=== PATIENT | male | born 1950 | race Caucasian/White ===

== ENCOUNTER 2022-03-26 05:46 | Inpatient (IN) | payer MEDICAID, MEDICARE ==
[~2022-03-26] VITALS: Ht 167.6 cm; Wt 65.8 kg
[2022-03-26 06:27] VITALS: BP_SYST 105
[2022-03-26 07:32] LABS: BASOPHILS % (AUTO) 0.2 % (0.0-2.0); EOSINOPHILS # (AUTO) 0.1 K/uL (0.0-0.4); EOSINOPHILS % (AUTO) 1.1 % (0.0-4.0); HEMATOCRIT 24.6 % (36-54); HEMOGLOBIN 8.3 g/dL (14.0-18.0); LYMPHOCYTES # (AUTO) 0.4 K/uL (1.0-5.5); LYMPHOCYTES % (AUTO) 6.7 % (20.5-51.5); MEAN CORPUSCULAR HEMOGLOBIN 30 pg (27-31); MEAN CORPUSCULAR HGB CONC 34 % (32-36); MEAN CORPUSCULAR VOLUME 90 fL (79.0-98.0); MONOCYTES # (AUTO) 0.6 K/uL (0.0-1.0); MONOCYTES % (AUTO) 9.7 % (1.7-9.3); NEUTROPHILS # (AUTO) 4.8 K/uL (1.8-7.7); NEUTROPHILS % (AUTO) 82.3 % (40.0-70.0); PLATELET COUNT (AUTO) 107 K/uL (130-430); RED BLOOD CELL COUNT(AUTO) 2.73 MIL/uL (4.2-6.2); RED CELL DISTRIBUTION WIDTH 13.6 % (9.0-15.0); WHITE BLOOD COUNT (AUTO) 5.9 K/uL (4.8-10.8)
[2022-03-26 07:51] LABS: ANION GAP 6 (5-15); CALCIUM 9.3 mg/dL (8.4-11.0); CHLORIDE 105 mmol/L (98-107); CREATININE 1.03 mg/dL (0.55-1.30); GLUCOSE 171 mg/dL (70-99); SODIUM SERUM 133 mmol/L (136-145); UREA NITROGEN, BLOOD 29 mg/dL (8-21)
[2022-03-26 07:52] LABS: INR 0.9 (0.80-1.20); PROTHROMBIN TIME 9.9 SECS (9.5-12.5)
[2022-03-26 08:01] LABS: ALANINE AMINOTRANSFERASE 15 U/L (12-78); ALBUMIN 1.6 g/dL (3.4-4.8); ASPARTATE AMINOTRANSFERASE 37 U/L (10-37); TOTAL BILIRUBIN 0.1 mg/dL (0.0-1.0)
[2022-03-26 08:24] LABS: BILIRUBIN,URINE NEGATIVE (NEGATIVE); BLOOD, URINE NEGATIVE (NEGATIVE); CLARITY/URINE CLEAR (CLEAR); COLOR,URINE YELLOW (YELLOW); GLUCOSE,URINE TRACE (NEGATIVE); KETONES,URINE NEGATIVE (NEGATIVE); LEUKOCYTE ESTERASE ,URINE NEGATIVE (NEGATIVE); NITRITE, URINE NEGATIVE (NEGATIVE); PH,URINE 6.5 (5.0-8.0); PROTEIN URINE 1+ (NEGATIVE); UROBILINOGEN,URINE 0.2 (0.2-1.0)
[2022-03-26] MEDS ORDERED: ACET325T53 PO (10:27)
[2022-03-26] MEDS ORDERED: HYDR2TAB4 GT (10:27)
[2022-03-26] MEDS ORDERED: LEVO50CA4 (10:27)
[2022-03-26] MEDS ORDERED: AMLO5TAB4 PO (10:27)
[2022-03-26] MEDS ORDERED: LACT10SO6 GT (10:27)
[2022-03-26] MEDS ORDERED: PRAV20TA59 GT (10:27)
[2022-03-26] MEDS ORDERED: PRO40 GT (10:27)
[2022-03-26] MEDS ORDERED: ASPI-1155 PO (10:27)
[2022-03-26] MEDS ORDERED: ONDANSETRON HCL 4 MG/2 ML VIAL IVP PRN (16:45)
[2022-03-26] MEDS: MORPHINE 2 MG/ML INJ. SYRINGE IVP PRN ×2 (17:14→22:00)
[2022-03-26 21:55] VITALS: BP_SYST 112
[2022-03-27] VITALS (7 sets, daily range): BP systolic 106–129
[2022-03-27 07:52] LABS: BASOPHILS % (AUTO) 0.4 % (0.0-2.0); EOSINOPHILS % (AUTO) 0.6 % (0.0-4.0); HEMATOCRIT 29.6 % (36-54); HEMOGLOBIN 10.1 g/dL (14.0-18.0); LYMPHOCYTES # (AUTO) 0.5 K/uL (1.0-5.5); LYMPHOCYTES % (AUTO) 5.3 % (20.5-51.5); MEAN CORPUSCULAR HEMOGLOBIN 31 pg (27-31); MEAN CORPUSCULAR HGB CONC 34 % (32-36); MEAN CORPUSCULAR VOLUME 89 fL (79.0-98.0); MONOCYTES # (AUTO) 0.6 K/uL (0.0-1.0); MONOCYTES % (AUTO) 7.2 % (1.7-9.3); NEUTROPHILS # (AUTO) 7.4 K/uL (1.8-7.7); NEUTROPHILS % (AUTO) 86.5 % (40.0-70.0); PLATELET COUNT (AUTO) 146 K/uL (130-430); RED BLOOD CELL COUNT(AUTO) 3.33 MIL/uL (4.2-6.2); RED CELL DISTRIBUTION WIDTH 13.7 % (9.0-15.0); WHITE BLOOD COUNT (AUTO) 8.6 K/uL (4.8-10.8)
[2022-03-27 08:13] LABS: ALANINE AMINOTRANSFERASE 23 U/L (12-78); ANION GAP 8 (5-15); ASPARTATE AMINOTRANSFERASE 31 U/L (10-37); CALCIUM 11.2 mg/dL (8.4-11.0); CHLORIDE 105 mmol/L (98-107); CREATININE 0.99 mg/dL (0.55-1.30); GLUCOSE 103 mg/dL (70-99); POTASSIUM 4.4 mmol/L (3.5-5.1); SODIUM SERUM 136 mmol/L (136-145); TOTAL BILIRUBIN 0.7 mg/dL (0.0-1.0); UREA NITROGEN, BLOOD 27 mg/dL (8-21)
[2022-03-27] MEDS ORDERED: GASTROGRAFIN 120 ML ONE (08:33)
[2022-03-27] MEDS: D5/0.45 NS 1,000 ML IV SCH ×2 (10:52→23:20)
[2022-03-27] MEDS ORDERED: PANTOPRAZOLE SODIUM 40 MG/VIAL (PROTONIX) IVP ONE (21:15)
[2022-03-28 00:40] VITALS: BP_SYST 122
[2022-03-28 04:11] VITALS: BP_SYST 122
[2022-03-28 07:14] LABS: BASOPHILS % (AUTO) 0.2 % (0.0-2.0); EOSINOPHILS % (AUTO) 0.5 % (0.0-4.0); HEMATOCRIT 26.6 % (36-54); HEMOGLOBIN 9.1 g/dL (14.0-18.0); LYMPHOCYTES # (AUTO) 0.5 K/uL (1.0-5.5); LYMPHOCYTES % (AUTO) 6.8 % (20.5-51.5); MEAN CORPUSCULAR HEMOGLOBIN 31 pg (27-31); MEAN CORPUSCULAR HGB CONC 34 % (32-36); MEAN CORPUSCULAR VOLUME 89 fL (79.0-98.0); MONOCYTES # (AUTO) 0.5 K/uL (0.0-1.0); MONOCYTES % (AUTO) 6.5 % (1.7-9.3); NEUTROPHILS # (AUTO) 6.8 K/uL (1.8-7.7); PLATELET COUNT (AUTO) 158 K/uL (130-430); RED BLOOD CELL COUNT(AUTO) 2.97 MIL/uL (4.2-6.2); RED CELL DISTRIBUTION WIDTH 13.4 % (9.0-15.0); WHITE BLOOD COUNT (AUTO) 7.9 K/uL (4.8-10.8)
[2022-03-28 07:44] LABS: TOTAL IRON BIND. CAPACITY 205 ug/dL (250-450)
[2022-03-28 08:00] VITALS: BP_SYST 118
[2022-03-28] MEDS: MORPHINE 2 MG/ML INJ. SYRINGE IVP PRN (09:42)
[2022-03-28] MEDS: PANTOPRAZOLE SODIUM 40 MG/VIAL (PROTONIX) IVP SCH (09:43)
[2022-03-28 10:40] LABS: ALANINE AMINOTRANSFERASE 22 U/L (12-78); ANION GAP 10 (5-15); ASPARTATE AMINOTRANSFERASE 30 U/L (10-37); BILIRUBIN,DIRECT 0.3 mg/dL (0.0-0.3); CALCIUM 10.9 mg/dL (8.4-11.0); CHLORIDE 110 mmol/L (98-107); CREATININE 1.22 mg/dL (0.55-1.30); GLUCOSE 125 mg/dL (70-99); POTASSIUM 3.9 mmol/L (3.5-5.1); SODIUM SERUM 143 mmol/L (136-145); TOTAL BILIRUBIN 0.3 mg/dL (0.0-1.0); UREA NITROGEN, BLOOD 38 mg/dL (8-21)
[2022-03-28 11:34] VITALS: BP_SYST 126
[2022-03-28 15:46] VITALS: BP_SYST 125
[2022-03-28 20:20] VITALS: BP_SYST 117
[2022-03-29] MEDS: MORPHINE 2 MG/ML INJ. SYRINGE IVP PRN (01:28)
[2022-03-29 01:34] VITALS: BP_SYST 120
[2022-03-29 07:05] LABS: BASOPHILS % (AUTO) 0.4 % (0.0-2.0); EOSINOPHILS % (AUTO) 0.7 % (0.0-4.0); HEMOGLOBIN 9.2 g/dL (14.0-18.0); LYMPHOCYTES # (AUTO) 0.5 K/uL (1.0-5.5); LYMPHOCYTES % (AUTO) 7.4 % (20.5-51.5); MEAN CORPUSCULAR HEMOGLOBIN 30 pg (27-31); MEAN CORPUSCULAR HGB CONC 34 % (32-36); MEAN CORPUSCULAR VOLUME 90 fL (79.0-98.0); MONOCYTES # (AUTO) 0.5 K/uL (0.0-1.0); MONOCYTES % (AUTO) 7.5 % (1.7-9.3); NEUTROPHILS # (AUTO) 5.2 K/uL (1.8-7.7); PLATELET COUNT (AUTO) 137 K/uL (130-430); RED BLOOD CELL COUNT(AUTO) 3.01 MIL/uL (4.2-6.2); RED CELL DISTRIBUTION WIDTH 13.4 % (9.0-15.0); WHITE BLOOD COUNT (AUTO) 6.2 K/uL (4.8-10.8)
[2022-03-29 07:07] LABS: FOLATE (FOLIC ACID) 13.2 ng/mL (>3.0)
[2022-03-29 07:32] LABS: ANION GAP 8 (5-15); CALCIUM 10.9 mg/dL (8.4-11.0); CHLORIDE 112 mmol/L (98-107); CREATININE 1.21 mg/dL (0.55-1.30); GLUCOSE 91 mg/dL (70-99); POTASSIUM 3.8 mmol/L (3.5-5.1); SODIUM SERUM 144 mmol/L (136-145); UREA NITROGEN, BLOOD 38 mg/dL (8-21)
[2022-03-29] MEDS: PANTOPRAZOLE SODIUM 40 MG/VIAL (PROTONIX) IVP SCH ×2 (09:00→09:32)
[2022-03-29 10:24] VITALS: BP_SYST 126
[2022-03-29 12:39] VITALS: BP_SYST 108
[2022-03-29 16:53] VITALS: BP_SYST 133
[2022-03-29 20:00] VITALS: BP_SYST 96
[2022-03-30 02:05] VITALS: BP_SYST 127
[2022-03-30 06:57] LABS: BASOPHILS % (AUTO) 0.3 % (0.0-2.0); EOSINOPHILS # (AUTO) 0.1 K/uL (0.0-0.4); EOSINOPHILS % (AUTO) 0.8 % (0.0-4.0); HEMATOCRIT 26.8 % (36-54); HEMOGLOBIN 8.9 g/dL (14.0-18.0); LYMPHOCYTES # (AUTO) 0.4 K/uL (1.0-5.5); LYMPHOCYTES % (AUTO) 6.3 % (20.5-51.5); MEAN CORPUSCULAR HEMOGLOBIN 30 pg (27-31); MEAN CORPUSCULAR HGB CONC 33 % (32-36); MEAN CORPUSCULAR VOLUME 90 fL (79.0-98.0); MONOCYTES # (AUTO) 0.4 K/uL (0.0-1.0); MONOCYTES % (AUTO) 6.9 % (1.7-9.3); NEUTROPHILS # (AUTO) 5.5 K/uL (1.8-7.7); NEUTROPHILS % (AUTO) 85.7 % (40.0-70.0); PLATELET COUNT (AUTO) 140 K/uL (130-430); RED BLOOD CELL COUNT(AUTO) 2.97 MIL/uL (4.2-6.2); RED CELL DISTRIBUTION WIDTH 13.6 % (9.0-15.0); WHITE BLOOD COUNT (AUTO) 6.4 K/uL (4.8-10.8)
[2022-03-30 08:11] VITALS: BP_SYST 101
[2022-03-30 08:13] LABS: ANION GAP 7 (5-15); CALCIUM 11.8 mg/dL (8.4-11.0); CHLORIDE 117 mmol/L (98-107); CREATININE 1.33 mg/dL (0.55-1.30); GLUCOSE 113 mg/dL (70-99); POTASSIUM 3.5 mmol/L (3.5-5.1); SODIUM SERUM 150 mmol/L (136-145); UREA NITROGEN, BLOOD 44 mg/dL (8-21)
[2022-03-30] MEDS: PANTOPRAZOLE SODIUM 40 MG/VIAL (PROTONIX) IVP SCH (09:00)
[2022-03-30 12:40] VITALS: BP_SYST 104
[2022-03-30 16:00] VITALS: BP_SYST 103
[2022-03-30 20:00] VITALS: BP_SYST 99
[2022-03-31 01:25] VITALS: BP_SYST 111
[2022-03-31 07:50] VITALS: BP_SYST 93
[2022-03-31 08:00] VITALS: BP_SYST 93
[2022-03-31 12:29] VITALS: BP_SYST 101
[2022-03-31 16:41] VITALS: BP_SYST 105
[2022-03-31] MEDS: MORPHINE 2 MG/ML INJ. SYRINGE IVP PRN (16:48)
[2022-03-31] MEDS ORDERED: NALOXONE HCL 0.4 MG/ML AMP (NARCAN) IVP PRN (18:15)
[2022-03-31] MEDS ORDERED: NS 250 ML IV ONE (21:30)
[2022-03-31] MEDS ORDERED: NACL 0.9% 1,000 ML IV ONE (21:30)
[2022-03-31] MEDS: ALBUMIN HUMAN 25% 100 ML IV PRN (23:28)
[2022-04-01] VITALS (22 sets, daily range): BP systolic 74–136
[2022-04-01] MEDS: IPRATROPIUM/ALBUTEROL SULFATE 3 ML AMPUL.NEB (DUONEB) INH PRN (00:26)
[2022-04-01] MEDS ORDERED: NOREPINEPHRINE 4 MG/4 ML VIAL IV ONE (01:09)
[2022-04-01] MEDS ORDERED: ALBUMIN HUMAN 25% 100 ML IV ONE (03:54)
[2022-04-01] MEDS: ALBUMIN HUMAN 25% 100 ML IV PRN (03:54)
[2022-04-01] MEDS ORDERED: NOREPINEPHRINE BITARTRATE 4 MG in NS 246 ML IV PRN (05:45)
[2022-04-01 07:39] LABS: ALANINE AMINOTRANSFERASE 34 U/L (12-78); ALBUMIN 2.3 g/dL (3.4-4.8); ANION GAP 15 (5-15); ASPARTATE AMINOTRANSFERASE 71 U/L (10-37); CREATININE 2.38 mg/dL (0.55-1.30); GLUCOSE 127 mg/dL (70-99); PHOSPHORUS 7.2 mg/dL (2.7-4.5); POTASSIUM 4.3 mmol/L (3.5-5.1); SODIUM SERUM 154 mmol/L (136-145); TOTAL BILIRUBIN 0.8 mg/dL (0.0-1.0); UREA NITROGEN, BLOOD 70 mg/dL (8-21)
[2022-04-01] MEDS ORDERED: SODIUM BICARBONATE 8.4% JECT 50 MEQ/50 ML SYRINGE IVP ONE (08:00)
[2022-04-01] MEDS ORDERED: ALBUMIN HUMAN 25% 100 ML IV PRN (08:00)
[2022-04-01] MEDS ORDERED: SODIUM BICARBONATE 8.4% JECT 50 MEQ/50 ML SYRINGE ONE (08:09)
[2022-04-01 08:22] LABS: BASOPHILS % (AUTO) 0.2 % (0.0-2.0); EOSINOPHILS % (AUTO) 0.4 % (0.0-4.0); HEMATOCRIT 27.2 % (36-54); HEMOGLOBIN 8.7 g/dL (14.0-18.0); LYMPHOCYTES # (AUTO) 0.6 K/uL (1.0-5.5); LYMPHOCYTES % (AUTO) 15.5 % (20.5-51.5); MEAN CORPUSCULAR HEMOGLOBIN 30 pg (27-31); MEAN CORPUSCULAR HGB CONC 32 % (32-36); MEAN CORPUSCULAR VOLUME 93 fL (79.0-98.0); MONOCYTES # (AUTO) 0.2 K/uL (0.0-1.0); NEUTROPHILS # (AUTO) 3.2 K/uL (1.8-7.7); NEUTROPHILS % (AUTO) 79.9 % (40.0-70.0); PLATELET COUNT (AUTO) 122 K/uL (130-430); RED BLOOD CELL COUNT(AUTO) 2.92 MIL/uL (4.2-6.2); RED CELL DISTRIBUTION WIDTH 14.1 % (9.0-15.0)
[2022-04-01] MEDS ORDERED: PIPERACILLIN/TAZO 3.375/DEX-IS 50 ML IV SCH (08:45)
[2022-04-01 08:55] LABS: CALCIUM 13.7 mg/dL (8.4-11.0); CHLORIDE 121 mmol/L (98-107)
[2022-04-01 09:25] LABS: INR 1.2 (0.80-1.20); PROTHROMBIN TIME 12.1 SECS (9.5-12.5)
[2022-04-01] MEDS ORDERED: methylPREDNISolone SOD SUCC/PF 62.5 MG/ML VIAL IVP ONE (09:30)
[2022-04-01] MEDS: PANTOPRAZOLE SODIUM 40 MG/VIAL (PROTONIX) IVP SCH (09:52)
[2022-04-01] MEDS: 0.45% NACL 1,000 ML IV SCH ×2 (09:52→17:26)
[2022-04-01] MEDS: NOREPINEPHRINE BITARTRATE 16 MG in NS 234 ML IV PRN (12:27)
[2022-04-01] MEDS: methylPREDNISolone SOD SUCC/PF 62.5 MG/ML VIAL IVP SCH ×2 (14:17→22:03)
[2022-04-01] MEDS: PIPERACILLIN/TAZO 3.375/DEX-IS 50 ML IV SCH ×2 (14:18→22:51)
[2022-04-01] MEDS ORDERED: PAMIDRONATE DISODIUM 90 MG in NS 250 ML IV ONE (16:30)
[2022-04-02] VITALS (24 sets, daily range): BP systolic 92–157
[2022-04-02] MEDS: 0.45% NACL 1,000 ML IV SCH ×3 (01:45→22:34)
[2022-04-02] MEDS: PIPERACILLIN/TAZO 3.375/DEX-IS 50 ML IV SCH ×3 (05:11→21:55)
[2022-04-02] MEDS: methylPREDNISolone SOD SUCC/PF 62.5 MG/ML VIAL IVP SCH ×3 (05:15→21:55)
[2022-04-02 06:51] LABS: HEMOGLOBIN 8.9 g/dL (14.0-18.0); LYMPHOCYTES # (AUTO) 0.3 K/uL (1.0-5.5); LYMPHOCYTES % (AUTO) 4.5 % (20.5-51.5); MEAN CORPUSCULAR HEMOGLOBIN 30 pg (27-31); MEAN CORPUSCULAR HGB CONC 33 % (32-36); MEAN CORPUSCULAR VOLUME 90 fL (79.0-98.0); MONOCYTES # (AUTO) 0.1 K/uL (0.0-1.0); MONOCYTES % (AUTO) 1.8 % (1.7-9.3); NEUTROPHILS # (AUTO) 5.9 K/uL (1.8-7.7); NEUTROPHILS % (AUTO) 93.7 % (40.0-70.0); PLATELET COUNT (AUTO) 94 K/uL (130-430); RED CELL DISTRIBUTION WIDTH 14.2 % (9.0-15.0); WHITE BLOOD COUNT (AUTO) 6.3 K/uL (4.8-10.8)
[2022-04-02 06:54] LABS: ANION GAP 14 (5-15); CHLORIDE 116 mmol/L (98-107); CREATININE 2.47 mg/dL (0.55-1.30); GLUCOSE 133 mg/dL (70-99); SODIUM SERUM 152 mmol/L (136-145); UREA NITROGEN, BLOOD 81 mg/dL (8-21)
[2022-04-02] MEDS: PANTOPRAZOLE SODIUM 40 MG/VIAL (PROTONIX) IVP SCH (08:37)
[2022-04-02 09:05] LABS: CALCIUM 12.6 mg/dL (8.4-11.0)
[2022-04-03] VITALS (25 sets, daily range): BP systolic 92–129
[2022-04-03] MEDS ORDERED: ALBUMIN HUMAN 25% 100 ML IV ONE (01:40)
[2022-04-03] MEDS: methylPREDNISolone SOD SUCC/PF 62.5 MG/ML VIAL IVP SCH ×3 (05:57→21:25)
[2022-04-03] MEDS: PIPERACILLIN/TAZO 3.375/DEX-IS 50 ML IV SCH ×3 (05:57→21:24)
[2022-04-03 06:33] LABS: ALANINE AMINOTRANSFERASE 53 U/L (12-78); ALBUMIN 2.3 g/dL (3.4-4.8); ANION GAP 12 (5-15); ASPARTATE AMINOTRANSFERASE 65 U/L (10-37); CALCIUM 11.1 mg/dL (8.4-11.0); CHLORIDE 111 mmol/L (98-107); CREATININE 2.25 mg/dL (0.55-1.30); GLUCOSE 238 mg/dL (70-99); SODIUM SERUM 143 mmol/L (136-145); UREA NITROGEN, BLOOD 88 mg/dL (8-21)
[2022-04-03] MEDS: PANTOPRAZOLE SODIUM 40 MG/VIAL (PROTONIX) IVP SCH (08:42)
[2022-04-03] MEDS: HYDROmorphone 1 MG/ML INJ. CARTRIDGE IM PRN ×2 (11:27→17:16)
[2022-04-03] MEDS: 0.45% NACL 1,000 ML IV SCH ×2 (12:00→21:44)
[2022-04-04] VITALS (23 sets, daily range): BP systolic 98–161
[2022-04-04 06:00] LABS: BASOPHILS % (AUTO) 0.1 % (0.0-2.0); HEMATOCRIT 25.9 % (36-54); HEMOGLOBIN 8.6 g/dL (14.0-18.0); LYMPHOCYTES # (AUTO) 0.2 K/uL (1.0-5.5); LYMPHOCYTES % (AUTO) 2.5 % (20.5-51.5); MEAN CORPUSCULAR HEMOGLOBIN 30 pg (27-31); MEAN CORPUSCULAR HGB CONC 33 % (32-36); MEAN CORPUSCULAR VOLUME 90 fL (79.0-98.0); MONOCYTES % (AUTO) 0.5 % (1.7-9.3); NEUTROPHILS # (AUTO) 7.6 K/uL (1.8-7.7); NEUTROPHILS % (AUTO) 96.9 % (40.0-70.0); PLATELET COUNT (AUTO) 55 K/uL (130-430); RED BLOOD CELL COUNT(AUTO) 2.88 MIL/uL (4.2-6.2); RED CELL DISTRIBUTION WIDTH 14.3 % (9.0-15.0); WHITE BLOOD COUNT (AUTO) 7.9 K/uL (4.8-10.8)
[2022-04-04] MEDS: PIPERACILLIN/TAZO 3.375/DEX-IS 50 ML IV SCH ×3 (06:18→21:52)
[2022-04-04 06:21] LABS: ANION GAP 13 (5-15); CHLORIDE 114 mmol/L (98-107); CREATININE 1.97 mg/dL (0.55-1.30); POTASSIUM 3.7 mmol/L (3.5-5.1); SODIUM SERUM 148 mmol/L (136-145); UREA NITROGEN, BLOOD 82 mg/dL (8-21)
[2022-04-04] MEDS: methylPREDNISolone SOD SUCC/PF 62.5 MG/ML VIAL IVP SCH (06:59)
[2022-04-04 07:46] LABS: GLUCOSE 408 mg/dL (70-99)
[2022-04-04] MEDS ORDERED: D5W 1,000 ML IV PRN (08:15)
[2022-04-04] MEDS ORDERED: GLUCOSE (DEXTROSE) ORAL GEL -Adults PO PRN (08:15)
[2022-04-04] MEDS ORDERED: DEXTROSE 50% JECT 50 ML DISP.SYRIN IVP PRN (08:15)
[2022-04-04] MEDS: PANTOPRAZOLE SODIUM 40 MG/VIAL (PROTONIX) IVP SCH (09:23)
[2022-04-04] MEDS: 0.45% NACL 1,000 ML IV SCH ×2 (09:23→18:32)
[2022-04-04] MEDS: INSULIN REGULAR, HUMAN 100 UNITS/ML, 10 ML VIAL (humuLIN R) SUBCUT PRN ×3 (09:24→18:33)
[2022-04-04] MEDS: METHYLPREDNISOLONE SOD SUCC 40 MG/ML VIAL IVP SCH (21:53)
[2022-04-04] MEDS: NOREPINEPHRINE BITARTRATE 16 MG in NS 234 ML IV PRN (22:07)
[2022-04-05] VITALS (25 sets, daily range): BP systolic 88–124
[2022-04-05] MEDS: INSULIN REGULAR, HUMAN 100 UNITS/ML, 10 ML VIAL (humuLIN R) SUBCUT PRN ×4 (01:10→17:51)
[2022-04-05] MEDS: 0.45% NACL 1,000 ML IV SCH ×3 (05:11→23:30)
[2022-04-05] MEDS: PIPERACILLIN/TAZO 3.375/DEX-IS 50 ML IV SCH ×3 (05:14→21:41)
[2022-04-05 05:58] LABS: HEMATOCRIT 26.5 % (36-54); HEMOGLOBIN 8.7 g/dL (14.0-18.0); MEAN CORPUSCULAR HEMOGLOBIN 30 pg (27-31); MEAN CORPUSCULAR HGB CONC 33 % (32-36); MEAN CORPUSCULAR VOLUME 90 fL (79.0-98.0); PLATELET COUNT (AUTO) 58 K/uL (130-430); RED BLOOD CELL COUNT(AUTO) 2.94 MIL/uL (4.2-6.2); RED CELL DISTRIBUTION WIDTH 14.4 % (9.0-15.0)
[2022-04-05 06:11] LABS: ANION GAP 10 (5-15); CALCIUM 9.2 mg/dL (8.4-11.0); CHLORIDE 116 mmol/L (98-107); GLUCOSE 285 mg/dL (70-99); SODIUM SERUM 149 mmol/L (136-145); UREA NITROGEN, BLOOD 79 mg/dL (8-21)
[2022-04-05] MEDS: METHYLPREDNISOLONE SOD SUCC 40 MG/ML VIAL IVP SCH ×2 (09:54→21:38)
[2022-04-05 15:49] LABS: CORRECTED WHITE BLOOD COUNT 6.6 K/uL (4.5-11.0)
[2022-04-05 15:50] LABS: BAND % (MANUAL) 12 % (0-6); BASOPHILS % (MANUAL) 0 % (0-2); EOSINOPHILS % (MANUAL) 0 % (0-7); LYMPHOCYTES % (MANUAL) 9 % (20-46); MONOCYTES % (MANUAL) 2 % (0-11)
[2022-04-05] MEDS: MORPHINE 2 MG/ML INJ. SYRINGE IVP PRN (21:44)
[2022-04-06] VITALS (24 sets, daily range): BP systolic 92–120
[2022-04-06] MEDS: INSULIN REGULAR, HUMAN 100 UNITS/ML, 10 ML VIAL (humuLIN R) SUBCUT PRN ×4 (00:36→18:17)
[2022-04-06] MEDS: PIPERACILLIN/TAZO 3.375/DEX-IS 50 ML IV SCH (06:06)
[2022-04-06 06:08] LABS: BASOPHILS % (AUTO) 0.1 % (0.0-2.0); HEMATOCRIT 24.7 % (36-54); LYMPHOCYTES # (AUTO) 0.2 K/uL (1.0-5.5); LYMPHOCYTES % (AUTO) 2.9 % (20.5-51.5); MEAN CORPUSCULAR HEMOGLOBIN 30 pg (27-31); MEAN CORPUSCULAR HGB CONC 32 % (32-36); MEAN CORPUSCULAR VOLUME 91 fL (79.0-98.0); MONOCYTES # (AUTO) 0.1 K/uL (0.0-1.0); MONOCYTES % (AUTO) 1.2 % (1.7-9.3); NEUTROPHILS # (AUTO) 6.2 K/uL (1.8-7.7); NEUTROPHILS % (AUTO) 95.8 % (40.0-70.0); RED BLOOD CELL COUNT(AUTO) 2.72 MIL/uL (4.2-6.2); RED CELL DISTRIBUTION WIDTH 14.9 % (9.0-15.0); WHITE BLOOD COUNT (AUTO) 6.5 K/uL (4.8-10.8)
[2022-04-06 06:27] LABS: ANION GAP 5 (5-15); CALCIUM 8.1 mg/dL (8.4-11.0); CHLORIDE 116 mmol/L (98-107); CREATININE 1.94 mg/dL (0.55-1.30); GLUCOSE 311 mg/dL (70-99); POTASSIUM 4.6 mmol/L (3.5-5.1); SODIUM SERUM 145 mmol/L (136-145); UREA NITROGEN, BLOOD 80 mg/dL (8-21)
[2022-04-06 06:54] LABS: PLATELET COUNT (AUTO) 45 K/uL (130-430)
[2022-04-06] MEDS: METHYLPREDNISOLONE SOD SUCC 40 MG/ML VIAL IVP SCH ×2 (08:49→21:50)
[2022-04-06] MEDS: 0.45% NACL 1,000 ML IV SCH ×2 (09:30→21:43)
[2022-04-06] MEDS: CEFEPIME 1 GM in D5W 50 ML IV SCH (21:45)
[2022-04-06] MEDS: DOCUSATE SODIUM 100 MG/10 ML UDC PO SCH (21:51)
[2022-04-06] MEDS ORDERED: NOREPINEPHRINE 4 MG/4 ML VIAL IV ONE (22:15)
[2022-04-06] MEDS: NOREPINEPHRINE BITARTRATE 16 MG in NS 234 ML IV PRN (22:32)
[2022-04-07] VITALS (24 sets, daily range): BP systolic 92–134
[2022-04-07] MEDS: INSULIN REGULAR, HUMAN 100 UNITS/ML, 10 ML VIAL (humuLIN R) SUBCUT PRN ×4 (01:52→18:48)
[2022-04-07 06:21] LABS: BASOPHILS % (AUTO) 0.2 % (0.0-2.0); EOSINOPHILS % (AUTO) 0.2 % (0.0-4.0); HEMATOCRIT 25.6 % (36-54); HEMOGLOBIN 8.2 g/dL (14.0-18.0); LYMPHOCYTES # (AUTO) 0.2 K/uL (1.0-5.5); LYMPHOCYTES % (AUTO) 1.7 % (20.5-51.5); MEAN CORPUSCULAR HEMOGLOBIN 30 pg (27-31); MEAN CORPUSCULAR HGB CONC 32 % (32-36); MEAN CORPUSCULAR VOLUME 94 fL (79.0-98.0); MONOCYTES % (AUTO) 0.4 % (1.7-9.3); NEUTROPHILS # (AUTO) 9.4 K/uL (1.8-7.7); NEUTROPHILS % (AUTO) 97.5 % (40.0-70.0); PLATELET COUNT (AUTO) 57 K/uL (130-430); RED BLOOD CELL COUNT(AUTO) 2.71 MIL/uL (4.2-6.2); WHITE BLOOD COUNT (AUTO) 9.6 K/uL (4.8-10.8)
[2022-04-07 06:36] LABS: ANION GAP 7 (5-15); CALCIUM 8.1 mg/dL (8.4-11.0); CHLORIDE 119 mmol/L (98-107); GLUCOSE 266 mg/dL (70-99); SODIUM SERUM 150 mmol/L (136-145); UREA NITROGEN, BLOOD 86 mg/dL (8-21)
[2022-04-07 07:46] LABS: POTASSIUM 5.8 mmol/L (3.5-5.1)
[2022-04-07] MEDS ORDERED: SODIUM POLYSTYRENE SULFONATE 15 GM/60 ML UDBTL GT ONE (08:30)
[2022-04-07] MEDS: METHYLPREDNISOLONE SOD SUCC 40 MG/ML VIAL IVP SCH ×2 (08:38→20:16)
[2022-04-07] MEDS: DOCUSATE SODIUM 100 MG/10 ML UDC PO SCH ×2 (08:38→20:15)
[2022-04-07] MEDS: CEFEPIME 1 GM in D5W 50 ML IV SCH ×2 (08:39→20:15)
[2022-04-07] MEDS: 0.45% NACL 1,000 ML IV SCH (10:43)
[2022-04-07] MEDS: MORPHINE 2 MG/ML INJ. SYRINGE IVP PRN (11:01)
[2022-04-07] MEDS: IPRATROPIUM/ALBUTEROL SULFATE 3 ML AMPUL.NEB (DUONEB) INH PRN (19:26)
[2022-04-08] VITALS (23 sets, daily range): BP systolic 104–122
[2022-04-08] MEDS: INSULIN REGULAR, HUMAN 100 UNITS/ML, 10 ML VIAL (humuLIN R) SUBCUT PRN ×2 (00:35→06:04)
[2022-04-08] MEDS: IPRATROPIUM/ALBUTEROL SULFATE 3 ML AMPUL.NEB (DUONEB) INH PRN (03:01)
[2022-04-08] MEDS: 0.45% NACL 1,000 ML IV SCH (06:05)
[2022-04-08] MEDS: NOREPINEPHRINE BITARTRATE 16 MG in NS 234 ML IV PRN (06:40)
[2022-04-08 06:45] LABS: ANION GAP 7 (5-15); CALCIUM 8.2 mg/dL (8.4-11.0); CHLORIDE 116 mmol/L (98-107); CREATININE 2.38 mg/dL (0.55-1.30); GLUCOSE 326 mg/dL (70-99); HEMATOCRIT 26.4 % (36-54); HEMOGLOBIN 8.3 g/dL (14.0-18.0); MEAN CORPUSCULAR HEMOGLOBIN 30 pg (27-31); MEAN CORPUSCULAR HGB CONC 32 % (32-36); MEAN CORPUSCULAR VOLUME 95 fL (79.0-98.0); PLATELET COUNT (AUTO) 59 K/uL (130-430); RED BLOOD CELL COUNT(AUTO) 2.79 MIL/uL (4.2-6.2); RED CELL DISTRIBUTION WIDTH 14.9 % (9.0-15.0); SODIUM SERUM 146 mmol/L (136-145); UREA NITROGEN, BLOOD 97 mg/dL (8-21); WHITE BLOOD COUNT (AUTO) 13.8 K/uL (4.8-10.8)
[2022-04-08] MEDS: METHYLPREDNISOLONE SOD SUCC 40 MG/ML VIAL IVP SCH ×2 (09:04→21:19)
[2022-04-08] MEDS: DOCUSATE SODIUM 100 MG/10 ML UDC PO SCH ×2 (09:05→21:20)
[2022-04-08] MEDS: CEFEPIME 1 GM in D5W 50 ML IV SCH ×2 (09:07→21:19)
[2022-04-08 09:52] LABS: POTASSIUM 6.3 mmol/L (3.5-5.1)
[2022-04-08] MEDS ORDERED: SODIUM POLYSTYRENE SULFONATE 15 GM/60 ML UDBTL PO ONE (10:00)
[2022-04-08] MEDS ORDERED: SODIUM POLYSTYRENE SULFONATE 15 GM/60 ML UDBTL ONE (10:23)
[2022-04-08 13:25] LABS: BAND % (MANUAL) 2 % (0-6); BASOPHILS % (MANUAL) 0 % (0-2); EOSINOPHILS % (MANUAL) 0 % (0-7); LYMPHOCYTES % (MANUAL) 1 % (20-46); MONOCYTES % (MANUAL) 2 % (0-11)
[2022-04-08] MEDS: MIDODRINE HCL 5 MG TABLET (PROAMATINE) PO SCH ×2 (15:00→21:20)
[2022-04-09] VITALS (18 sets, daily range): BP systolic 75–117
[2022-04-09] MEDS: 0.45% NACL 1,000 ML IV SCH (01:38)
[2022-04-09 06:25] LABS: ANION GAP 7 (5-15); CALCIUM 8.7 mg/dL (8.4-11.0); CHLORIDE 117 mmol/L (98-107); CREATININE 2.13 mg/dL (0.55-1.30); GLUCOSE 187 mg/dL (70-99); SODIUM SERUM 145 mmol/L (136-145); UREA NITROGEN, BLOOD 97 mg/dL (8-21)
[2022-04-09 06:34] LABS: POTASSIUM 5.8 mmol/L (3.5-5.1)
[2022-04-09] MEDS ORDERED: NOREPINEPHRINE BITARTRATE 4 MG in NS 246 ML IV PRN (07:15)
[2022-04-09] MEDS ORDERED: PROPOFOL DRIP 100 ML IV PRN (07:15)
[2022-04-09] MEDS ORDERED: NS 500 ML IV ONE (07:15)
[2022-04-09 07:28] LABS: BASOPHILS % (AUTO) 0.1 % (0.0-2.0); HEMATOCRIT 25.4 % (36-54); HEMOGLOBIN 8.2 g/dL (14.0-18.0); LYMPHOCYTES # (AUTO) 0.1 K/uL (1.0-5.5); LYMPHOCYTES % (AUTO) 1.1 % (20.5-51.5); MEAN CORPUSCULAR HEMOGLOBIN 30 pg (27-31); MEAN CORPUSCULAR HGB CONC 32 % (32-36); MEAN CORPUSCULAR VOLUME 92 fL (79.0-98.0); MONOCYTES % (AUTO) 0.4 % (1.7-9.3); NEUTROPHILS # (AUTO) 11.2 K/uL (1.8-7.7); NEUTROPHILS % (AUTO) 98.4 % (40.0-70.0); PLATELET COUNT (AUTO) 59 K/uL (130-430); RED BLOOD CELL COUNT(AUTO) 2.76 MIL/uL (4.2-6.2); RED CELL DISTRIBUTION WIDTH 14.8 % (9.0-15.0); WHITE BLOOD COUNT (AUTO) 11.4 K/uL (4.8-10.8)
[2022-04-09] MEDS: NOREPINEPHRINE BITARTRATE 16 MG in NS 234 ML IV PRN (07:31)
[2022-04-09] MEDS: CEFEPIME 1 GM in D5W 50 ML IV SCH (10:07)
[2022-04-09] MEDS: METHYLPREDNISOLONE SOD SUCC 40 MG/ML VIAL IVP SCH (10:08)
[2022-04-09] MEDS: MIDODRINE HCL 5 MG TABLET (PROAMATINE) PO SCH (10:08)
[2022-04-09] MEDS: DOCUSATE SODIUM 100 MG/10 ML UDC PO SCH (10:08)
[2022-04-09] MEDS ORDERED: MORPHINE SULFATE IN 0.9 % NACL 100 ML IV PRN ×2 (11:00→12:30)
[2022-04-09] MEDS ORDERED: COMMUNICATION ORDER XX ONE (11:00)
[2022-04-09] MEDS ORDERED: NALOXONE HCL 0.4 MG/ML AMP (NARCAN) IVP PRN (11:00)
== END 2022-04-09 19:20 | DRG 720 ==
LOC: SED 05:46 → STU 09:45 → SMU 03-28 16:30 → STU 03-31 23:31 → SIC 04-01 01:05
PROVIDERS: ADMIT Internal Medicine; ATTEND Internal Medicine
PROC: 02HV33Z Insertion of Infusion Device into Superior Vena Cava, Percutaneous Approach (ICD-10-PCS; principal; 2022-04-01)
PROC: B548ZZA Ultrasonography of Superior Vena Cava, Guidance (ICD-10-PCS; 2022-04-01)
PROC: 5A09557 Assistance with Respiratory Ventilation, Greater than 96 Consecutive Hours, Continuous Positive Airway Pressure (ICD-10-PCS; 2022-04-01)
DX: A41.9 Sepsis, unspecified organism (principal); J96.01 Acute respiratory failure with hypoxia; R65.21 Severe sepsis with septic shock; G12.21 Amyotrophic lateral sclerosis; E43 Unspecified severe protein-calorie malnutrition; J94.2 Hemothorax; C49.9 Malignant neoplasm of connective and soft tissue, unspecified; J18.9 Pneumonia, unspecified organism; C76.0 Malignant neoplasm of head, face and neck; D64.9 Anemia, unspecified; C78.00 Secondary malignant neoplasm of unspecified lung; E03.9 Hypothyroidism, unspecified; E78.5 Hyperlipidemia, unspecified; E83.52 Hypercalcemia; G35 Multiple sclerosis; Z66 Do not resuscitate; I10 Essential (primary) hypertension; Z51.5 Encounter for palliative care; Z85.831 Personal history of malignant neoplasm of soft tissue; Z87.891 Personal history of nicotine dependence; Z93.1 Gastrostomy status
CPT/HCPCS: 36415; 36600; 71045; 71250-TC; 74240-TC; 76376; 80048; 80053; 80076; 81003; 82607; 82728; 82746; 82803-TC; 82962; 82977; 83540; 83550; 83605; 83735; 83970; 84100; 84484; 85007; 85025; 85027; 85610-TC; 85730-TC; 86886; 86900; 86901; 87040; 87081; 87086; 93005; 93970; 94640; 94660; 99285; C9113; G0378; J0692; J1030; J1170; J1815; J2270; J2405; J2430; J2543; J2930; J7050; J7060; P9046; Q9963